=== PATIENT | female | born 1995 | race Caucasian/White ===

== ENCOUNTER → 2017-09-08 | Emergency (ER) | LOC: COL.ER 20:38 | DX: Z72.89 Other problems related to lifestyle (principal) ==

== ENCOUNTER → 2018-11-29 | Outpatient (CLI) | payer OTHER | LOC: COL.RAD 11:13 | DX: D72.829 Elevated white blood cell count, unspecified (principal); R59.1 Generalized enlarged lymph nodes ==

== ENCOUNTER → 2018-12-06 | Outpatient (CLI) | payer OTHER ==
[~2018-12-06] VITALS: Ht 162.6 cm; Wt 88.1 kg
[2018-12-06 13:43] VITALS: BP 102/78; PULSE 78
[2018-12-06 14:25] VITALS: BP 114/73; PULSE 70
== END ==
LOC: COL.RAD 13:27
DX: R59.0 Localized enlarged lymph nodes (principal)
CPT/HCPCS: 32106